=== PATIENT | male | born 1965 | race Hispanic/Latino ===

== ENCOUNTER 2020-05-26 09:25 | Outpatient (CLI) | payer MEDICARE ==
[2020-05-26 09:48] LABS: Basophils % (Auto) 0.8 % (0.0-1.8); Eosinophils # (Auto) 0.2 K/mm3 (0.0-0.4); Eosinophils % (Auto) 2.7 % (0.0-4.3); Hematocrit 45.2 % (35.5-45.6); Hemoglobin 15.5 gm/dl (11.8-15.2); Lymphocytes # (Auto) 1.6 K/mm3 (1.2-5.4); Lymphocytes % (Auto) 24.1 % (13.4-35.0); Mean Corpuscular HGB Conc 34 % (32-34); Mean Corpuscular Volume 91 fl (84-94); Monocytes # (Auto) 0.4 K/mm3 (0.0-0.8); Monocytes % (Auto) 6.8 % (0.0-7.3); Platelet Count 260 K/mm3 (140-440); Red Blood Count 4.97 M/mm3 (3.65-5.03); Red Cell Distribution Width 13.6 % (13.2-15.2)
[2020-05-26 10:05] LABS: Alanine Aminotransferase 9 units/L (7-56); Albumin 4.5 g/dL (3.9-5); BUN/Creatinine Ratio 14; Blood Urea Nitrogen 15 mg/dL (9-20); Calcium 9.1 mg/dL (8.4-10.2); Chol/HDL Ratio 2.81 %; HDL Cholesterol 44 mg/dL (40-59); Hemolysis Index 7; LDL Cholesterol,Direct 71 mg/dL (50-130)
== END 2020-05-26 09:26 | disposition home or self-care (01) ==
LOC: LAB 09:25
PROVIDERS: ATTEND Internal Medicine
DX: Z13.29 Encounter for screening for other suspected endocrine disorder (principal); Z13.220 Encounter for screening for lipoid disorders; R73.9 Hyperglycemia, unspecified; E78.5 Hyperlipidemia, unspecified; E07.9 Disorder of thyroid, unspecified
CPT/HCPCS: 36415; 80053; 80061; 83036; 84443; 85025

== ENCOUNTER 2020-10-14 09:12 | Day surgery (SDC) | payer MEDICARE ==
[~2020-10-14 09:12] MED LIST: SODIUM CHLORIDE 0.9% 1000 ML 1,000 ML IV SCH
--- NOTE | 2020-10-14 10:53 | Anesthesia Consultation ---
Anesthesia Consult and Med Hx Date of service: 10/14/20 - Airway Anesthetic Teeth Evaluation: Poor (multiple broken, missing teeth) ROM Head & Neck: Adequate Mental/Hyoid Distance: Adequate Mallampati Class: Class II Intubation Access Assessment: Probably Good - Pre-Operative Health Status ASA Pre-Surgery Classification: ASA2 Proposed Anesthetic Plan: MAC - Cardiovascular System Hx Hypertension: Yes - Central Nervous System Hx Psychiatric Problems: Yes (patient is mentally challenged, able to follow simple commands)
--- NOTE | 2020-10-14 10:54 | Anesthesia Day of Surgery ---
Anesthesia Day of Surgery - Day of Surgery Patient Examined: Yes Patient H&P Reviewed: Yes Patient is NPO: Yes
[2020-10-14] MEDS ORDERED: propofoL 200 MG/20 ML VIAL IV ONE (12:16)
[2020-10-14] MEDS ORDERED: SODIUM CHLORIDE 0.9% 1000 ML IV SOLN IV ONE (12:28)
--- NOTE | 2020-10-14 12:42 | Procedure Note ---
Date of procedure: 10/14/20 Pre-op diagnosis: Colon Polyp Screening Post-op diagnosis: other (Solitary,Sigmoid Colon Polyp (removed by hot,snare polypectomy)/ Moderate,Left Colon Diverticuli/ Minor,Internal Hemorrhoid) Procedure: Colonoscopy with Hot Snare Polypectomy Anesthesia: MAC Surgeon: TIFFANY ARAIZA Estimated blood loss: minimal Pathology: list Specimen disposition: to lab Condition: stable Disposition: same day (Encourage fiber intake. Avoid aspirin and NSAID and anticoagulants for 5 days; otherwise resume home medication. follow up in 1 to 2 weeks ([phone]).)
--- NOTE | 2020-10-14 12:43 | Operative Report ---
PROCEDURE: Colonoscopy with hot snare polypectomy. INDICATIONS: This is a 54-year-old white male who had a colonoscopy done as part of colon polyp screening. DESCRIPTION OF PROCEDURE: Initial rectal exam was unremarkable. Instrument was passed through the rectum onto the cecum, which was identified with ileocecal valve and appendiceal orifice. Visualization was fair to good. The cecum was also examined on the retroverted view. No additional pathology was noted. Cecum, ascending colon, transverse colon showed normal mucosa and there were scattered diverticula, which was moderate ____ noted in the left colon and the sigmoid showed a 10 mm sessile polyp that was removed by snare polypectomy. Photodocumentation was obtained. There was minimal bleeding from the polypectomy site and the rectum showed minor internal hemorrhoids. ASSESSMENT: Colon polyp screening, solitary sigmoid polyp, sessile 10 mm in size removed by snare polypectomy and retrieved. Moderate left colon diverticula, minor internal hemorrhoid. PLAN: To have the patient avoid aspirin and aspirin-related products for the next few days. Encouraged the patient to take fiber supplements. Otherwise, resume home medications besides aspirin and aspirin-related products and anticoagulants and follow up in the office in 1-2 weeks' time. The procedure was done in the GI lab with assistance of the GI lab team, which included the GI nurse, Aron lopez and with assistance of anesthesia. JOB# [id number] FERCHO/MARVIN
[2020-10-14 13:02] VITALS: BP 120/78
--- NOTE | 2020-10-14 14:38 | Post Anesthesia Evaluation ---
- Post Anesthesia Evaluation Patient Participated: Yes Airway Patent: Yes Stable Respiratory Function: Yes Nausea/Vomiting: No Temp > 96.8F: Yes Pain Manageable: Yes Adequeate Hydration: Yes Anesthesia Complications: No Block Receding Appropriately: Not Applicable Patient on Ventilator: No
== END 2020-10-14 09:13 | disposition home or self-care (01) ==
LOC: GIO 09:12
DX: Z12.11 Encounter for screening for malignant neoplasm of colon (principal); K63.5 Polyp of colon; K63.89 Other specified diseases of intestine; K57.30 Diverticulosis of large intestine without perforation or abscess without bleeding; K64.8 Other hemorrhoids; I10 Essential (primary) hypertension; Z88.0 Allergy status to penicillin; Z88.8 Allergy status to other drugs, medicaments and biological substances; Z79.899 Other long term (current) drug therapy; Z80.8 Family history of malignant neoplasm of other organs or systems
CPT/HCPCS: 45385; 88305; J2704; J7030

== ENCOUNTER 2021-03-01 22:43 | Emergency (ER) | payer MEDICARE ==
[2021-03-01 23:05] VITALS: BP 129/89
--- NOTE | 2021-03-02 00:22 | XRay Report ---
LEFT HAND RADIOGRAPH, 3 VIEWS INDICATION / CLINICAL INFORMATION: left hand pain swelling hit hand with hammer COMPARISON: None available. FINDINGS: BONES / JOINT(S): No acute displaced fracture or subluxation. No significant arthritis. SOFT TISSUES: Soft tissue swelling along the dorsum of the hand. ADDITIONAL FINDINGS: None. Signer Name: Angela Donato MD Signed: 03/02/2021 12:17 AM Workstation Name: [id number]
[2021-03-02] MEDS ORDERED: HYDROcodone/ACETAMINOPHEN 5-325 MG TAB PO ONE (00:51)
[2021-03-02] MEDS ORDERED: TETANUS,DIPH,PERTUSS(ACELL) VACCINE 0.5 ML SYRINGE IM ONE (00:51)
--- NOTE | 2021-03-02 00:59 | Emergency Department Report ---
ED Upper Extremity Inj HPI - General Chief Complaint: Extremity Injury, Upper Stated Complaint: LEFT HAND INJURY/SWOLLEN/PAIN Time Seen by Provider: 03/02/21 00:47 Source: patient, family Mode of arrival: Ambulatory Limitations: Other - History of Present Illness Initial Comments: Patient is a 55-year-old male presents emergency room with complaints of a left hand injury that occurred earlier today. Patient has a history of developmental disability and his caregiver is with him also giving history. Patient was using a hammer to hammer a pipe in place and accidentally missed the pipe and hit his hand. He denies anything puncturing the hand. He is right-hand dominant. Caregiver says no known history of left hand injury. Patient denies any nu mbness or weakness. He still able to move his digits. Past medical history of hypertension. His caregiver states that his only allergy is penicillin and that he does not have any other allergies. She states that he is not allergic to any of the medications that are listed in his chart except for the penicillin. Patient and caregiver unsure of last tetanus immunization. - Related Data Previous Rx's Medication Instructions Recorded Last Taken Type carisoprodoL [Soma] 350 mg PO Q8H PRN #21 tablet 01/20/14 Unknown Rx Acetaminophen/Codeine [Tylenol 1 tab PO Q8H PRN #12 tablet 08/21/15 Unknown Rx /Codeine # 3 tab] Naproxen [EC-Naprosyn] 500 mg PO BID PRN #14 tablet. 03/02/21 Unknown Rx Neomycin/Bacitracin/Polymyxinb 1 applicatio TP BID #14 oint...g. 03/02/21 Unknown Rx [Triple Antibiotic Ointment] Allergies Allergy/AdvReac Type Severity Reaction Status Date / Time acetaminophen Allergy Rash Verified 12/12/14 18:26 [From Darvocet-N 100] ibuprofen [From Motrin] Allergy Rash Verified 12/12/14 18:26 ketorolac tromethamine Allergy Rash Verified 12/12/14 18:26 [From Toradol] Penicillins Allergy Rash Verified 12/12/14 18:26 propoxyphene napsylate Allergy Rash Verified 12/12/14 18:26 [From Darvocet-N 100] tramadol HCl [From Ultram] AdvReac Unknown Verified 12/12/14 21:12 ED Review of Systems ROS: Stated complaint: LEFT HAND INJURY/SWOLLEN/PAIN Other details as noted in HPI Comment: All other systems reviewed and negative ED Past Medical Hx - Past Medical History Previous Medical History?: Yes Hx Hypertension: Yes Additional medical history: scoleosis, chronic back pain - Surgical History Past Surgical History?: No - Social History Smoking Status: Never Smoker Substance Use Type: None - Medications Home Medications: Home Medications Medication Instructions Recorded Confirmed Last Taken Type carisoprodoL [Soma] 350 mg PO Q8H PRN #21 tablet 01/20/14 Unknown Rx Acetaminophen/Codeine [Tylenol 1 tab PO Q8H PRN #12 tablet 08/21/15 Unknown Rx /Codeine # 3 tab] Naproxen [EC-Naprosyn] 500 mg PO BID PRN #14 tablet. 03/02/21 Unknown Rx Neomycin/Bacitracin/Polymyxinb 1 applicatio TP BID #14 oint...g. 03/02/21 Unknown Rx [Triple Antibiotic Ointment] ED Physical Exam - General Limitations: Other General appearance: alert, in no apparent distress - Head Head exam: Present: atraumatic, normocephalic - Eye Eye exam: Present: normal appearance - ENT ENT exam: Present: mucous membranes moist - Respiratory Respiratory exam: Absent: respiratory distress, accessory muscle use - Extremities Exam Extremities exam: Present: other (small abrasion present to the left dorsal hand, there is edema and ttp overlying the 2nd and 3rd metacarpal, no ttp of the wrist, snuffbox, or digits, FROM of the LUE, neurovascularly intact) - Neurological Exam Neurological exam: Present: alert, oriented X3 - Psychiatric Psychiatric exam: Present: normal affect, normal mood - Skin Skin exam: Present: warm, dry ED Course Vital Signs 03/01/21 03/02/21 22:59 01:25 Temperature 98.7 F Pulse Rate 76 70 Respiratory 18 16 Rate Blood Pressure 129/89 O2 Sat by Pulse 95 99 Oximetry ED Medical Decision Making - Radiology Data Radiology results: report reviewed Ordering Physician: BUSHRA RIZO MD Date of Service: 03/01/21 Procedure(s): XR hand 3+V LT Accession Number(s): [id number] cc: BUSHRA RIZO MD Fluoro Time In Minutes: LEFT HAND RADIOGRAPH, 3 VIEWS INDICATION / CLINICAL INFORMATION: left hand pain swelling hit hand with hammer COMPARISON: None available. FINDINGS: BONES / JOINT(S): No acute displaced fracture or subluxation. No significant arthritis. SOFT TISSUES: Soft tissue swelling along the dorsum of the hand. ADDITIONAL FINDINGS: None. Signer Name: Angela Donato MD Signed: 03/02/2021 12:17 AM Workstation Name: [id number] Transcribed By: [facility] Dictated By: Angela Donato MD Electronically Authenticated By: Angela Donato MD Signed Date/Time: 03/02/2116 DD/ TD/TT: - Medical Decision Making Patient is a 55-year-old male presents emergency room with complaints of a left hand injury that occurred earlier today. Patient has a history of developmental disability and his caregiver is with him also giving history. Patient was using a hammer to hammer a pipe in place and accidentally missed the pipe and hit his hand. He denies anything puncturing the hand. He is right-hand dominant. Caregiver says no known history of left hand injury. Patient denies any numbness or weakness. He still able to move his digits. Past medical history of hypertension. His caregiver states that his only allergy is penicillin and that he does not have any other allergies. She states that he is not allergic to any of the medications that are listed in his chart except for the penicillin. Patient and caregiver unsure of last tetanus immunization. Vitals are normal. On exam:small abrasion present to the left dorsal hand, there is edema and ttp overlying the 2nd and 3rd metacarpal, no ttp of the wrist, snuffbox, or digits, FROM of the LUE, neurovascularly intact. X-ray left hand: BONES / JOINT(S): No acute displaced fracture or subluxation. No significant arthritis. SOFT TISSUES: Soft tissue swelling along the dorsum of the hand. ADDITIONAL FINDINGS: None. Patient given Tdap and pain medication while in the ED and symptoms improved. Patient placed in Ethan wrap by head bellhop captain and remained neurovascular intact. Patient given prescription for naproxen and triple antibiotic ointment. Advised patient and patient's caregiver Please use medication as prescribed. Please keep area clean, dry, covered. Wash with antibacterial soap and water and pat dry. May use ice for 15 minutes at a time, rest, elevation of the arm. Please do not wear Ethan bandage too tightly and do not wear at night while sleeping. Follow-up with orthopedic doctor. Follow-up with your primary care doctor. Return to emergency room for any new or worsening symptoms. Critical care attestation.: If time is entered above; I have spent that time in minutes in the direct care of this critically ill patient, excluding procedure time. ED Disposition Clinical Impression: Abrasion Injury of left hand Qualifiers: Encounter type: initial encounter Qualified Code(s): S69.92XA - Unspecified injury of left wrist, hand and finger(s), initial encounter Contusion Qualifiers: Encounter type: initial encounter Contusion area: hand Laterality: left Qualified Code(s): S60.222A - Contusion of left hand, initial encounter Disposition: TO HOME OR SELFCARE Is pt being admited?: No Does the pt Need Aspirin: No Condition: Stable Instructions: Abrasion, Contusion, Hasa-gd-Ursp Additional Instructions: Please use medication as prescribed. Please keep area clean, dry, covered. Wash with antibacterial soap and water and pat dry. May use ice for 15 minutes at a time, rest, elevation of the arm. Please do not wear Ethan bandage too tightly and do not wear at night while sleeping. Follow-up with orthopedic doctor. Follow-up with your primary care doctor. Return to emergency room for any new or worsening symptoms. Prescriptions: Naproxen [EC-Naprosyn] 500 mg PO BID PRN #14 tablet.dr CALVILLO Reason: pain Neomycin/Bacitracin/Polymyxinb [Triple Antibiotic Ointment] 1 applicatio TP BID #14 oint...g. Referrals: JOHN SMITH MD [Staff Physician] - 3-5 Days [facility] [Provider Group] - 3-5 Days Time of Disposition: 00:58 Print Language: ITALIAN
== END 2021-03-02 01:25 | disposition home or self-care (01) ==
LOC: ED 22:43
DX: S69.92XA Unspecified injury of left wrist, hand and finger(s), initial encounter (principal); S60.222A Contusion of left hand, initial encounter; I10 Essential (primary) hypertension; Z79.899 Other long term (current) drug therapy; Z88.0 Allergy status to penicillin; Z88.8 Allergy status to other drugs, medicaments and biological substances; W22.8XXA Striking against or struck by other objects, initial encounter; Y93.89 Activity, other specified; Y92.89 Other specified places as the place of occurrence of the external cause; Y99.8 Other external cause status
CPT/HCPCS: 90471; 90715

== ENCOUNTER 2021-07-28 12:57 | Outpatient (CLI) | payer MEDICARE ==
[2021-07-28 13:30] LABS: Basophils % (Auto) 0.6 % (0.0-1.8); Eosinophils # (Auto) 0.2 K/mm3 (0.0-0.4); Eosinophils % (Auto) 3.2 % (0.0-4.3); Hematocrit 39.6 % (35.5-45.6); Hemoglobin 13.6 gm/dl (11.8-15.2); Lymphocytes # (Auto) 1.6 K/mm3 (1.2-5.4); Lymphocytes % (Auto) 21.6 % (13.4-35.0); Mean Corpuscular HGB Conc 34 % (32-34); Mean Corpuscular Volume 90 fl (84-94); Monocytes # (Auto) 0.6 K/mm3 (0.0-0.8); Monocytes % (Auto) 7.6 % (0.0-7.3); Platelet Count 287 K/mm3 (140-440); Red Blood Count 4.39 M/mm3 (3.65-5.03); Red Cell Distribution Width 13.7 % (13.2-15.2)
[2021-07-28 13:57] LABS: Albumin 4.3 g/dL (3.9-5); Calcium 8.7 mg/dL (8.4-10.2); Chol/HDL Ratio 3.2 %
[2021-07-31 12:34] LABS: Vitamin D, 25-OH, D2 <4 ng/mL
== END 2021-07-28 12:58 | disposition home or self-care (01) ==
LOC: LAB 12:57
PROVIDERS: ATTEND Internal Medicine
DX: I10 Essential (primary) hypertension (principal); Z13.1 Encounter for screening for diabetes mellitus; Z13.220 Encounter for screening for lipoid disorders; Z13.29 Encounter for screening for other suspected endocrine disorder; R39.11 Hesitancy of micturition; E55.9 Vitamin D deficiency, unspecified
CPT/HCPCS: 36415; 80053; 80061; 82306; 83036; 84153; 84443; 85025

== ENCOUNTER 2022-02-15 10:34 | Emergency (ER) | payer MEDICARE ==
[2022-02-15 11:32] VITALS: BP 104/68
--- NOTE | 2022-02-15 14:35 | Emergency Department Report ---
ED Extremity Problem HPI - General Chief complaint: Extremity Injury, Lower Stated complaint: RT KNEE PAIN/SWELLING Source: patient Mode of arrival: Ambulatory Limitations: No Limitations - History of Present Illness Initial comments: 56-year-old male presents to the ED complaining of right knee painX 1 day . Caregiver states the she is unknown how the patient may have hurt his knee. Patient states that when asked that he twisted his knee patient states yes. Patient is able to answer yes and no questions but not able to complete care full complete history. Patient did state that he was outdoors when the injury happened. Moderate edema noted to the right knee area. Patient is ambulatory with a limp . Caregiver denies any fever. No distracting injury noted. Patie nt is alert. No acute distress noted. No ill appearance noted. 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 MD Complaint: extremity pain Onset/Timin -: days(s) Location: right History of Same: No Radiation: none Severity scale (0 -10): 7 Consistency: intermittent Improves with: nothing Worsens with: weight bearing Associated Symptoms: denies other symptoms - Related Data Previous Rx's Medication Instructions Recorded Last Taken Type carisoprodoL [Soma] 350 mg PO Q8H PRN #21 tablet 01/20/14 Unknown Rx Acetaminophen/Codeine [Tylenol 1 tab PO Q8H PRN #12 tablet 08/21/15 Unknown Rx /Codeine # 3 tab] Naproxen [EC-Naprosyn] 500 mg PO BID PRN #14 tablet. 03/02/21 Unknown Rx Neomycin/Bacitracin/Polymyxinb 1 applicatio TP BID #14 oint...g. 03/02/21 Unknown Rx [Triple Antibiotic Ointment] Acetaminophen/Codeine [Tylenol 1 tab PO Q6H PRN 3 Days #12 tab 02/15/22 Unknown Rx /Codeine # 3 tab] Allergies Allergy/AdvReac Type Severity Reaction Status Date / Time acetaminophen Allergy Rash Verified 12/12/14 18:26 [From Darvocet-N 100] ibuprofen [From Motrin] Allergy Rash Verified 12/12/14 18:26 ketorolac tromethamine Allergy Rash Verified 12/12/14 18:26 [From Toradol] Penicillins Allergy Rash Verified 12/12/14 18:26 propoxyphene napsylate Allergy Rash Verified 12/12/14 18:26 [From Darvocet-N 100] tramadol HCl [From Ultram] AdvReac Unknown Verified 12/12/14 21:12 ED Review of Systems ROS: Stated complaint: RT KNEE PAIN/SWELLING Other details as noted in HPI Constitutional: denies: chills, fever Eyes: denies: eye pain, eye discharge, vision change ENT: denies: ear pain, throat pain Respiratory: denies: cough, shortness of breath, wheezing Cardiovascular: denies: chest pain, palpitations Endocrine: no symptoms reported Gastrointestinal: denies: abdominal pain, nausea, diarrhea Genitourinary: denies: urgency, dysuria Musculoskeletal: joint swelling. denies: back pain, arthralgia Skin: denies: rash, lesions Neurological: denies: headache, weakness, paresthesias Psychiatric: denies: anxiety, depression Hematological/Lymphatic: denies: easy bleeding, easy bruising ED Past Medical Hx - Past Medical History Previous Medical History?: No Hx Hypertension: Yes Additional medical history: scoleosis, chronic back pain - Surgical History Past Surgical History?: No - Social History Smoking Status: Never Smoker Substance Use Type: None - Medications Home Medications: Home Medications Medication Instructions Recorded Confirmed Last Taken Type carisoprodoL [Soma] 350 mg PO Q8H PRN #21 tablet 01/20/14 Unknown Rx Acetaminophen/Codeine [Tylenol 1 tab PO Q8H PRN #12 tablet 08/21/15 Unknown Rx /Codeine # 3 tab] Naproxen [EC-Naprosyn] 500 mg PO BID PRN #14 tablet. 03/02/21 Unknown Rx Neomycin/Bacitracin/Polymyxinb 1 applicatio TP BID #14 oint...g. 03/02/21 Unknown Rx [Triple Antibiotic Ointment] Acetaminophen/Codeine [Tylenol 1 tab PO Q6H PRN 3 Days #12 tab 02/15/22 Unknown Rx /Codeine # 3 tab] ED Physical Exam - General Limitations: No Limitations General appearance: alert, in no apparent distress - Head Head exam: Present: atraumatic, normocephalic - Eye Eye exam: Present: normal appearance - ENT ENT exam: Present: mucous membranes moist - Neck Neck exam: Present: normal inspection - Respiratory Respiratory exam: Present: normal lung sounds bilaterally. Absent: respiratory distress - Cardiovascular Cardiovascular Exam: Present: regular rate, normal rhythm. Absent: systolic murmur, diastolic murmur, rubs, gallop - GI/Abdominal GI/Abdominal exam: Present: soft, normal bowel sounds - Rectal Rectal exam: Present: deferred - Extremities Exam Extremities exam: Present: normal inspection - Expanded Lower Extremity Exam Right Knee exam: Present: tenderness, swelling - Back Exam Back exam: Present: normal inspection - Neurological Exam Neurological exam: Present: alert, oriented X3 - Psychiatric Psychiatric exam: Present: normal affect, normal mood - Skin Skin exam: Present: warm, dry, intact, normal color. Absent: rash ED Course Vital Signs 02/15/22 11:27 Temperature 98.1 F Pulse Rate 75 Respiratory 18 Rate Blood Pressure 104/68 Blood Pressure 104/68 [Left] O2 Sat by Pulse 96 Oximetry ED Medical Decision Making - Radiology Data [facility] [address] [place] [address] XRay Report Signed Patient: AARON ARCOS MR#: [id number] 161 : 1965 Acct:[id number] Age/Sex: 56 / M ADM Date: 02/15/22 Loc: ED Attending Dr: Ordering Physician: ANABEL BOCANEGRA Date of Service: 02/15/22 Procedure(s): XR knee 3V RT Accession Number(s): [id number] cc: ANABEL BOCANEGRA Fluoro Time In Minutes: RIGHT KNEE 3 VIEWS INDICATION / CLINICAL INFORMATION: knee pain. COMPARISON: None available. FINDINGS: BONES / JOINT(S): No acute fracture or subluxation. Mild osteoarthritis with a small joint effusion. SOFT TISSUES: No significant abnormality. ADDITIONAL FINDINGS: None. IMPRESSION: 1. No acute findings. Signer Name: Mitchell López MD Signed: 02/15/2022 3:16 PM Workstation Name: [id number] Transcribed By: JACK Dictated By: Mitchell López MD Electronically Authenticated By: Mitchell López MD Signed Date/Time: 02/15/22 1516 DD/ 14 TD/TT: - Medical Decision Making 56-year-old male presents to the ED complaining of right knee painX 1 day . Caregiver states the she is unknown how the patient may have hurt his knee. Patient states that when asked that he twisted his knee patient states yes. Patient is able to answer yes and no questions but not able to complete care full complete history. Patient did state that he was outdoors when the injury happened. Moderate edema noted to the right knee area. Patient is ambulatory with a limp . Caregiver denies any fever. No distracting injury noted. Patient is alert. No acute distress noted. No ill appearance noted. 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 Physical examination is moderate edema noted to the right knee. 2 view x-ray of the right knee showed mild joint effusion. Patient to follow-up with orthopedic doctor Ethan wrap of applied. Rechecked the patient is resting quietly quietly and comfortable and feeling better. I discussed the results of diagnostic study, my clinical impression and the plan for further treatment with the patient. Patient primary care sales representative agrees with plan and discharge at this present time. All question addressed. I have given the patient primary care sales representative instruction regarding a diagnosis ,expectation ,follow-up and return precaution. I explained to the patient primary care sales representative that emergent condition may arise and to return to the ED for new worsen and any new persisting condition. I have explained the importance of following up with the primary care physician or referral physician listed below has instructed. The patient primary care sales representative verbalized understanding of discharge instruction. Critical care attestation.: If time is entered above; I have spent that time in minutes in the direct care of this critically ill patient, excluding procedure time. ED Disposition Clinical Impression: Joint effusion of knee Qualifiers: Laterality: right Qualified Code(s): M25.461 - Effusion, right knee Disposition: 01 HOME / SELF CARE / HOMELESS Is pt being admited?: No Does the pt Need Aspirin: No Condition: Stable Instructions: Knee Effusion, [id number] Additional Instructions: Apply ice 4 times a day Medication as prescribed Return ED for any worsening symptoms Prescriptions: Acetaminophen/Codeine [Tylenol /Codeine # 3 tab] 1 tab PO Q6H PRN 3 Days #12 tab PRN Reason: Pain, Moderate (4-6) Referrals: PRIMARY CARE, [Primary Care Provider] - 3-5 Days JOHN SMITH MD [Staff Physician] - 3-5 Days
--- NOTE | 2022-02-15 15:20 | XRay Report ---
RIGHT KNEE 3 VIEWS INDICATION / CLINICAL INFORMATION: knee pain. COMPARISON: None available. FINDINGS: BONES / JOINT(S): No acute fracture or subluxation. Mild osteoarthritis with a small joint effusion. SOFT TISSUES: No significant abnormality. ADDITIONAL FINDINGS: None. IMPRESSION: 1. No acute findings. Signer Name: Mitchell López MD Signed: 02/15/2022 3:16 PM Workstation Name: [id number]
== END 2022-02-15 16:00 | disposition home or self-care (01) ==
LOC: ED 10:34
DX: M25.461 Effusion, right knee (principal); Z88.0 Allergy status to penicillin; Z88.8 Allergy status to other drugs, medicaments and biological substances; Z88.6 Allergy status to analgesic agent
CPT/HCPCS: 99283